=== PATIENT | male | born 1980 | race Caucasian/White ===

== ENCOUNTER 2022-02-11 13:59 | Outpatient (CLI) | payer OTHER, SELFPAY ==
[2022-02-11 22:29] LABS: Albumin* 4.6 g/dL (3.3-5.0)
[2022-02-11 22:30] LABS: Chloride* 104 mmol/L (96-114); Potassium* 4.2 mmol/L (3.6-5.1); Sodium* 139 mmol/L (135-149)
[2022-02-11 22:32] LABS: Aspartate Amino Transferase* 32 U/L (12-35); Bilirubin Total* 0.5 mg/dL (0.1-1.5); Blood Urea Nitrogen* 21 mg/dL (5-24); Carbon Dioxide* 26 mmol/L (20-32); Cholesterol* 221 mg/dL (90-199); Creatinine* 1.3 mg/dL (0.5-1.5); Estimated Glomerular Filt Rate 72 ml/min; Total Protein* 7.4 g/dL (6.0-8.3)
[2022-02-11 22:33] LABS: Alanine Aminotransferase* 43 U/L (4-50); Alkaline Phosphatase* 95 U/L (40-150); Calcium* 9.4 mg/dL (8.4-10.6); Glucose* 103 mg/dL (60-115); HDL Cholesterol* 38 mg/dL (>=40); LDL Cholesterol Calculated 89 mg/dL (<100)
[2022-02-11 22:46] LABS: Triglycerides* 470 mg/dL (40-149)
[2022-02-11 23:17] LABS: Hepatitis C Virus Antibody* Negative (Negative)
== END 2022-02-11 14:00 | disposition home or self-care (01) ==
PROVIDERS: Visit Provider Family Medicine
DX: Z00.00 Encounter for general adult medical examination without abnormal findings (principal); Z11.59 Encounter for screening for other viral diseases; Z13.6 Encounter for screening for cardiovascular disorders
CPT/HCPCS: 80053; 80061; 86803

== ENCOUNTER 2022-03-04 15:42 | Outpatient (CLI) | payer OTHER, SELFPAY ==
[2022-03-04 22:16] LABS: Albumin* 4.8 g/dL (3.3-5.0); Chloride* 106 mmol/L (96-114)
[2022-03-04 22:17] LABS: Potassium* 4.1 mmol/L (3.6-5.1); Sodium* 139 mmol/L (135-149)
[2022-03-04 22:19] LABS: Aspartate Amino Transferase* 30 U/L (12-35); Bilirubin Total* 0.7 mg/dL (0.1-1.5); Blood Urea Nitrogen* 19 mg/dL (5-24); Carbon Dioxide* 24 mmol/L (20-32); Cholesterol* 217 mg/dL (90-199); Creatinine* 1.1 mg/dL (0.5-1.5); Estimated Glomerular Filt Rate 88 ml/min; Total Protein* 7.6 g/dL (6.0-8.3)
[2022-03-04 22:20] LABS: Alanine Aminotransferase* 43 U/L (4-50); Alkaline Phosphatase* 95 U/L (40-150); Calcium* 9.5 mg/dL (8.4-10.6); Glucose* 104 mg/dL (60-115); HDL Cholesterol* 47 mg/dL (>=40); LDL Cholesterol Calculated 121 mg/dL (<100); Triglycerides* 244 mg/dL (40-149)
[2022-03-04 22:59] LABS: Hepatitis C Virus Antibody* Negative (Negative)
== END 2022-03-04 15:43 | disposition home or self-care (01) ==
PROVIDERS: PCP Family Medicine; Visit Provider Family Medicine
DX: Z00.00 Encounter for general adult medical examination without abnormal findings (principal); I10 Essential (primary) hypertension; Z11.59 Encounter for screening for other viral diseases; Z13.6 Encounter for screening for cardiovascular disorders
CPT/HCPCS: 80053; 80061; 86803

== ENCOUNTER 2023-04-14 14:58 | Outpatient (CLI) | payer OTHER, SELFPAY | END 2023-04-14 14:59 | disposition home or self-care (01) | PROVIDERS: PCP Family Medicine; Visit Provider Family Medicine | DX: Z00.00 Encounter for general adult medical examination without abnormal findings (principal); I10 Essential (primary) hypertension; Z13.6 Encounter for screening for cardiovascular disorders; Z13.1 Encounter for screening for diabetes mellitus; Z11.59 Encounter for screening for other viral diseases; Z11.3 Encounter for screening for infections with a predominantly sexual mode of transmission | CPT/HCPCS: 80053; 80061; 82043; 82570; 86803 ==

== ENCOUNTER 2024-05-25 13:20 | Outpatient (CLI) | payer OTHER, SELFPAY | END 2024-05-25 13:21 | disposition home or self-care (01) | PROVIDERS: PCP Family Medicine; Visit Provider Family Medicine | DX: I10 Essential (primary) hypertension (principal); F90.2 Attention-deficit hyperactivity disorder, combined type; F41.9 Anxiety disorder, unspecified; Z13.6 Encounter for screening for cardiovascular disorders | CPT/HCPCS: 80053; 80061; 82043; 82570 ==